=== PATIENT | male | born 1990 | race Caucasian/White ===

== ENCOUNTER 2019-12-20 10:52 | Observation (INO) ==
[2019-12-20] MEDS ORDERED: Naloxone 0.4 MG/ML INJ IVP PRN (13:49)
[2019-12-20] MEDS ORDERED: Ondansetron 4 MG/2 ML VIAL IVP PRN (14:14)
[2019-12-20] MEDS: 0.9 % Sodium Chloride 1,000 ML IVC SCH (15:46)
[2019-12-20] MEDS: Acetaminophen IV 1,000 MG/100 ML INFUS..BTL IVPB SCH ×2 (17:56→23:49)
[2019-12-20] MEDS ORDERED: Morphine Sulfate 2 MG/ML SYRINGE IVP ONE (21:42)
[2019-12-21] MEDS: 0.9 % Sodium Chloride 1,000 ML IVC SCH (01:36)
[2019-12-21 06:11] LABS: Basophils % 0.5 %; Eosinophils # 0.2 K/mcL (0.0-0.6); Eosinophils % 2.8 %; Hematocrit 40.6 % (37.5-50.1); Hemoglobin 12.9 g/dL (12.9-16.9); Immature Granulocytes % 0.6 % (0-4); Lymphocytes # 3.6 K/mcL (0.6-4.6); Lymphocytes % 42.2 %; Mean Corpuscular HGB Conc 31.8 g/dL (31.6-35.5); Mean Corpuscular Hemoglobin 29.1 pg (28.0-33.3); Mean Corpuscular Volume 91.6 fL (83.0-100.0); Monocytes # 0.8 K/mcL (0.0-1.3); Neutrophils # 3.9 K/mcL (1.6-8.9); Platelet Count 218 K/mcL (140-400); Red Blood Count 4.43 M/mcL (4.19-5.50); Red Cell Distribution Width 12.4 % (11.5-14.5); Segmented Neutrophils % 44.9 %; White Blood Count 8.6 K/mcL (4.3-11.1)
[2019-12-21] MEDS: Acetaminophen IV 1,000 MG/100 ML INFUS..BTL IVPB SCH ×2 (06:23→08:23)
[2019-12-21 06:49] LABS: BUN/Creatinine Ratio 13 (6-26); Blood Urea Nitrogen 14 mg/dL (6-20); Calcium 8.5 mg/dL (8.6-10.3); Carbon Dioxide 27 mEq/L (23-29); Chloride 105 mEq/L (98-107); Glucose 87 mg/dL (70-105); Magnesium 1.7 mg/dL (1.6-2.6); Osmolality,Calculated 284 (280-300); Phosphorous 3.3 mg/dL (2.7-4.5); Potassium 3.9 mEq/L (3.5-5.1); Sodium 137 mEq/L (136-145); eGFR For African Americans > 60 (> 60); eGFR For Non-African Americans > 60 (> 60)
[2019-12-21] MEDS ORDERED: Lidocaine -MPF 2% 2 ML VIAL ONE (08:29)
[2019-12-21 08:40] VITALS: BP 139/68
== END 2019-12-21 12:22 | disposition home or self-care (01) ==
LOC: CDU → 3BNU 15:10
PROVIDERS: ADMIT Internal Medicine; ATTEND Internal Medicine